=== PATIENT | female | born 1995 | race Two or more races ===

== ENCOUNTER 2019-01-19 02:48 | Emergency (ER) | payer OTHER ==
[~2019-01-19] VITALS: Ht 162.6 cm; Wt 64.4 kg
== END 2019-01-19 10:54 | disposition home or self-care (01) ==
LOC: ER 02:48
DX: K52.9 Noninfective gastroenteritis and colitis, unspecified (principal); J06.9 Acute upper respiratory infection, unspecified

== ENCOUNTER 2022-11-11 09:34 | Emergency (ER) | payer OTHER ==
[~2022-11-11] VITALS: Ht 160 cm; Wt 65.3 kg
== END 2022-11-11 14:23 | disposition home or self-care (01) ==
LOC: ER 09:34
DX: U07.1 COVID-19 (principal); Z88.6 Allergy status to analgesic agent

== ENCOUNTER 2023-06-21 08:20 | Outpatient (CLI) | payer OTHER | END 2023-06-21 08:27 | disposition home or self-care (01) | LOC: MRI 08:20 | DX: M54.59 Other low back pain (principal) | CPT/HCPCS: 72148 ==

== ENCOUNTER → 2023-06-22 06:38 | Outpatient (CLI) | payer OTHER ==
[2023-06-22 14:56] LABS: PLATELET ESTIMATE NORMAL (NORMAL)
== END | disposition home or self-care (01) ==
LOC: LAB 06:38
PROVIDERS: ATTEND Internal Medicine Hematology & Oncology
DX: D64.9 Anemia, unspecified (principal); D50.9 Iron deficiency anemia, unspecified

== ENCOUNTER 2023-09-06 05:00 | Emergency (ER) | payer OTHER ==
[~2023-09-06] VITALS: Ht 162.6 cm; Wt 65.8 kg
== END 2023-09-06 05:52 | disposition home or self-care (01) ==
LOC: ER 05:00
DX: S61.230A Puncture wound without foreign body of right index finger without damage to nail, initial encounter (principal); W46.1XXA Contact with contaminated hypodermic needle, initial encounter; Y93.89 Activity, other specified; Y92.239 Unspecified place in hospital as the place of occurrence of the external cause; Y99.8 Other external cause status; Z88.6 Allergy status to analgesic agent

== ENCOUNTER 2024-03-21 08:14 | Emergency (ER) | payer OTHER ==
[~2024-03-21] VITALS: Ht 162.6 cm; Wt 65.8 kg
[~2024-03-21 08:14] MED LIST: MAGNESIUM200 MG PO; NORFLEX100MG PO; OMEGA 3 1,0001 EACH PO
[2024-03-21] MEDS ORDERED: ACETAMINOPHEN 500 MG GEL..CAP PO ONE (08:49)
[2024-03-21 09:17] LABS: HEMATOCRIT 33.2 % (36.0-45.00); HEMOGLOBIN 11.5 g/dL (12.0-15.00); MEAN CELL VOLUME 91.8 fL (80.00-100.00); MEAN CORPUSCULAR HEMOGLOBIN 31.8 pg (27.00-32.0); MEAN CORPUSCULAR HGB CONC 34.6 g/dl (32.0-36.0); PLATELET COUNT 297 K/uL (150-450); RED BLOOD COUNT 3.61 M/uL (4.00-6.00); RED CELL DISTRIBUTION WIDTH 13.9 % (11.5-14.5)
== END 2024-03-21 11:21 | disposition home or self-care (01) ==
LOC: ER 08:15
PROVIDERS: Emergency Medicine
DX: N93.8 Other specified abnormal uterine and vaginal bleeding (principal); Z88.6 Allergy status to analgesic agent

== ENCOUNTER 2024-03-25 11:45 | Outpatient (CLI) | payer OTHER ==
[2024-03-25 12:34] LABS: HEMATOCRIT 34.5 % (36.0-45.00); HEMOGLOBIN 11.9 g/dL (12.0-15.00); MEAN CELL VOLUME 93.6 fL (80.00-100.00); MEAN CORPUSCULAR HEMOGLOBIN 32.4 pg (27.00-32.0); MEAN CORPUSCULAR HGB CONC 34.6 g/dl (32.0-36.0); PLATELET COUNT 264 K/uL (150-450); RED BLOOD COUNT 3.68 M/uL (4.00-6.00)
[2024-03-27 07:07] LABS: hav igm Negative (Negative); hcv Non Reactive (Non Reactive); hep b c Negative (Negative)
== END 2024-03-25 11:46 | disposition home or self-care (01) ==
LOC: LAB 11:45
PROVIDERS: ATTEND Obstetrics & Gynecology
DX: Z12.11 Encounter for screening for malignant neoplasm of colon (principal); D64.9 Anemia, unspecified; E03.8 Other specified hypothyroidism; N95.1 Menopausal and female climacteric states; I10 Essential (primary) hypertension; D51.9 Vitamin B12 deficiency anemia, unspecified; N30.00 Acute cystitis without hematuria; E83.51 Hypocalcemia; A64 Unspecified sexually transmitted disease; N39.0 Urinary tract infection, site not specified; R97.8 Other abnormal tumor markers; R79.89 Other specified abnormal findings of blood chemistry; E55.9 Vitamin D deficiency, unspecified; A60.9 Anogenital herpesviral infection, unspecified

== ENCOUNTER 2024-04-12 06:54 | Outpatient (CLI) | payer OTHER ==
[2024-04-12 08:46] LABS: HEMOGLOBIN 12.4 g/dL (12.0-15.00); MEAN CELL VOLUME 92.6 fL (80.00-100.00); MEAN CORPUSCULAR HEMOGLOBIN 31.8 pg (27.00-32.0); MEAN CORPUSCULAR HGB CONC 34.3 g/dl (32.0-36.0); PLATELET COUNT 236 K/uL (150-450); RED BLOOD COUNT 3.89 M/uL (4.00-6.00); RED CELL DISTRIBUTION WIDTH 14.4 % (11.5-14.5)
[2024-04-12 10:04] LABS: ALBUMIN 4.5 gm/dL (3.4-5.0); BILIRUBIN TOTAL 0.74 mg/dL (0.3-1.2); CALCIUM 9.8 mg/dL (8.5-10.1); CHOL HDL RATIO 2.7 (0-5.0); CREATININE SERUM 0.99 mg/dL (0.55-1.02); FERRITIN 26.6 NG/ML (8-252); GFR 67.28; GLOBULINA 4.4 G/DL (2.4-3.5); POTASSIUM 4.53 mEq/L (3.5-5.1); T4 TOTAL 7.69 UG/DL (4.8-13.9); TOTAL PROTEIN 8.9 gm/dL (6.4-8.2); TSH 2.14 uIU/mL (0.358-3.74)
[2024-04-12 15:54] LABS: URINE APPEARANCE Clear; URINE BILIRRUBIN Negative (NEGATIVE); URINE BLOOD Negative; URINE COLOR Yellow; URINE GLUCOSE Negative (NEGATIVE); URINE KETONE Trace (NEGATIVE); URINE LEUKOCYTE Negative; URINE NITRATE Negative; URINE PROTEIN Negative (NEGATIVE); URINE UROBILINOGEN 0.2 E.U./dl
[2024-04-12 15:58] LABS: URINE BACTERIA 479.9 uL (0.0-1933); URINE EPITHELIAL CELLS 21.1 uL (0.0-38.8); URINE RBC 6.8 uL (0.0-20.8); URINE WBC 14.5 uL (0.0-23.2)
[2024-04-12 16:01] LABS: URINE CAST 0.15 uL (0.0-1.40)
[2024-04-15 10:04] LABS: MEASLES IGG 57.5 AU/mL (Immune >16.4); PROLACTIN 40.3 ng/mL (4.8-33.4); RUBELLA IGM <20.0 AU/mL (0.0-19.9)
== END 2024-04-12 14:46 | disposition home or self-care (01) ==
LOC: LAB 06:54
PROVIDERS: ATTEND Internal Medicine Hematology & Oncology
DX: D50.8 Other iron deficiency anemias (principal); R74.01 Elevation of levels of liver transaminase levels; E03.8 Other specified hypothyroidism; E78.00 Pure hypercholesterolemia, unspecified; E55.9 Vitamin D deficiency, unspecified; B05.9 Measles without complication; B06.9 Rubella without complication; B26.9 Mumps without complication; A51.9 Early syphilis, unspecified; E03.9 Hypothyroidism, unspecified; E22.1 Hyperprolactinemia

== ENCOUNTER 2024-04-18 11:27 | Outpatient (CLI) | payer OTHER ==
[2024-04-18 12:54] LABS: MYCOPLASMA PNEUMONIAE IGM NON REACTIVE (NO REACTIVE)
== END 2024-04-18 11:38 | disposition home or self-care (01) ==
LOC: LAB 11:27
PROVIDERS: ATTEND Internal Medicine
DX: J20.9 Acute bronchitis, unspecified (principal)

== ENCOUNTER 2024-06-04 14:45 | Outpatient (CLI) | payer OTHER | END 2024-06-04 14:55 | disposition home or self-care (01) | LOC: PPH VACUNA 14:45 | PROVIDERS: ATTEND Emergency Medicine Pediatric Emergency Medicine | DX: Z23 Encounter for immunization (principal) ==

== ENCOUNTER 2024-06-11 08:11 | Outpatient (CLI) | payer OTHER | END 2024-06-11 08:20 | disposition home or self-care (01) | LOC: MRI 08:11 | PROVIDERS: ATTEND Internal Medicine Endocrinology, Diabetes & Metabolism | DX: D35.2 Benign neoplasm of pituitary gland (principal) | CPT/HCPCS: 70553 ==

== ENCOUNTER 2024-09-22 07:34 | Emergency (ER) | payer OTHER ==
[~2024-09-22] VITALS: Ht 157.5 cm; Wt 65.8 kg
[2024-09-22] MEDS ORDERED: CEFTRIAXONE SODIUM 1,000 MG VIAL ONE (08:56)
== END 2024-09-22 09:39 | disposition home or self-care (01) ==
LOC: ER 07:36
DX: H60.8X2 Other otitis externa, left ear (principal); Z88.6 Allergy status to analgesic agent

== ENCOUNTER 2025-06-04 08:17 | Outpatient (CLI) | payer OTHER | END 2025-06-04 08:20 | disposition home or self-care (01) | LOC: MRI 08:17 | PROVIDERS: ATTEND Internal Medicine | DX: R51.9 Headache, unspecified (principal); H92.02 Otalgia, left ear; Z80.9 Family history of malignant neoplasm, unspecified | CPT/HCPCS: 70551 ==

== ENCOUNTER 2025-06-11 09:58 | Outpatient (CLI) | payer OTHER ==
[2025-06-11 11:11] LABS: URINE APPEARANCE Clear; URINE BILIRRUBIN Negative (NEGATIVE); URINE BLOOD Trace; URINE COLOR Yellow; URINE GLUCOSE Negative (NEGATIVE); URINE KETONE Negative (NEGATIVE); URINE LEUKOCYTE Negative; URINE NITRATE Negative; URINE PROTEIN Negative (NEGATIVE); URINE UROBILINOGEN 0.2 E.U./dl
[2025-06-11 11:13] LABS: URINE BACTERIA 4.7 uL (0.0-1933); URINE EPITHELIAL CELLS 5.6 uL (0.0-38.8); URINE RBC 20.0 uL (0.0-20.8); URINE WBC 2.4 uL (0.0-23.2)
[2025-06-11 11:16] LABS: BASO % 0.5 % (0.1-1.2); EOS # 0.06 (0.04-0.54); EOS % 1.4 % (0.7-7.0); LYMPH # 1.61 (1.18-3.74); LYMPH % 36.8 % (19.3-53.1); MEAN PLATELET VOLUME 9.60 fl (9.4-12.4); MONO # 0.31 (0.24-0.82); MONO % 7.1 % (4.7-12.5); NEUT # 2.36 (1.56-6.13); NEUT % 54.0 % (34.0-71.1); RED CELL DISTRIBUTION WIDTH 13.3 % (11.6-14.4)
[2025-06-11 11:34] LABS: URINE CAST 0.14 uL (0.0-1.40)
[2025-06-11 12:16] LABS: BILIRUBIN TOTAL 0.8 mg/dL (0.3-1.2)
[2025-06-11 12:46] LABS: GLUCOSE FASTING 87.0 mg/dL (65-100)
[2025-06-11 13:34] LABS: ALT/SGPT 25.0 U/L (12-78); AST/SGOT 26.0 U/L (15-37); BUN CREA RATIO 20.0 (7.0-25.0); CHOL HDL RATIO 2.9 (0-5.0); CREATININE SERUM 0.9 mg/dL (0.55-1.02); GFR 74.55; GLOBULINA 3.8 G/DL (2.4-3.5); HDL 73.0 mg/dl (40-60); LDL 127.0 mg/dl (0-130); OSMOLALITY SERUM 281.0 MOSM/KG (275-295); VLDL 8.0 (0-39)
[2025-06-11 14:15] LABS: T3 TOTAL 0.667 ng/ml (0.846-2.02); VITAMIN D3 25 HYDROXY 42.73 ng/ml (30-120)
[2025-06-11 22:18] LABS: T4 TOTAL 5.81 UG/DL (4.8-13.9)
[2025-06-11 23:27] LABS: TSH 1.44 uIU/mL (0.358-3.74)
== END 2025-06-11 10:02 | disposition home or self-care (01) ==
LOC: LAB 09:58
PROVIDERS: ATTEND Internal Medicine
DX: C67.3 Malignant neoplasm of anterior wall of bladder (principal); A64 Unspecified sexually transmitted disease; Z00.00 Encounter for general adult medical examination without abnormal findings; Z13.1 Encounter for screening for diabetes mellitus; Z13.220 Encounter for screening for lipoid disorders; Z13.29 Encounter for screening for other suspected endocrine disorder; Z11.3 Encounter for screening for infections with a predominantly sexual mode of transmission

== ENCOUNTER 2025-07-14 05:28 | Emergency (ER) | payer OTHER ==
[~2025-07-14] VITALS: Ht 157.5 cm; Wt 65.8 kg
[2025-07-14] MEDS ORDERED: ONDANSETRON HCL 4 MG in 0.9 % SODIUM CHLORIDE 50 ML IV ONE (06:00)
[2025-07-14] MEDS ORDERED: FAMOTIDINE/PF 20 MG in 0.9 % SODIUM CHLORIDE 8 ML IV PUSH ONE (06:00)
[2025-07-14] MEDS ORDERED: 0.9 % SODIUM CHLORIDE 1,000 ML IV SCH (06:00)
[2025-07-14] MEDS ORDERED: HYOSCYAMINE SULFATE 0.125 MG TAB.SUBL SL ONE (06:00)
[2025-07-14] MEDS ORDERED: HYOSCYAMINE SULFATE 0.125 MG TAB.SUBL ONE (06:25)
[2025-07-14] MEDS ORDERED: ONDANSETRON HCL 2 MG/ML VIAL ONE (06:25)
[2025-07-14] MEDS ORDERED: FAMOTIDINE/PF 20 MG/2 ML VIAL ONE (06:26)
[2025-07-14 06:56] LABS: BASO % 0.1 % (0.1-1.2); EOS # 0.03 (0.04-0.54); EOS % 0.3 % (0.7-7.0); LYMPH # 0.83 (1.18-3.74); LYMPH % 7.2 % (19.3-53.1); MEAN PLATELET VOLUME 10.30 fl (9.4-12.4); MONO # 0.45 (0.24-0.82); MONO % 3.9 % (4.7-12.5); NEUT # 10.23 (1.56-6.13); NEUT % 88.2 % (34.0-71.1); RED CELL DISTRIBUTION WIDTH 13.2 % (11.6-14.4)
[2025-07-14 08:02] LABS: URINE APPEARANCE Clear; URINE BILIRRUBIN Negative (NEGATIVE); URINE BLOOD Small; URINE COLOR Yellow; URINE GLUCOSE Negative (NEGATIVE); URINE LEUKOCYTE Trace; URINE NITRATE Negative; URINE PROTEIN Negative (NEGATIVE); URINE UROBILINOGEN 0.2 E.U./dl
[2025-07-14 08:06] LABS: URINE BACTERIA 242.3 uL (0.0-1933); URINE EPITHELIAL CELLS 17.2 uL (0.0-38.8); URINE RBC 12.3 uL (0.0-20.8); URINE WBC 18.4 uL (0.0-23.2)
[2025-07-14 08:08] LABS: ALT/SGPT 19 U/L (12-78); AST/SGOT 22 U/L (15-37); BILIRUBIN TOTAL 1.00 mg/dL (0.3-1.2); BUN CREA RATIO 18 (7.0-25.0); CREATININE SERUM 0.97 mg/dL (0.55-1.02); GFR 68.38; GLOBULINA 4.0 G/DL (2.4-3.5); GLUCOSE FASTING 96 mg/dL (65-100); OSMOLALITY SERUM 281 MOSM/KG (275-295)
[2025-07-14 08:12] LABS: HCG QUANTITATIVE < 1 mUI/mL (1-3)
[2025-07-14 08:25] LABS: URINE CAST 0.00 uL (0.0-1.40); URINE KETONE 40 (NEGATIVE)
[2025-07-14] MEDS ORDERED: LEVSIN/SL0.125 MG SL (11:40)
[2025-07-14] MEDS ORDERED: AMOX1TAB5 PO (11:40)
[2025-07-14] MEDS ORDERED: PEPCID AC20 MG PO (11:40)
== END 2025-07-14 11:59 | disposition home or self-care (01) ==
LOC: ER 05:29
PROVIDERS: General Practice
DX: R10.11 Right upper quadrant pain (principal); K82.4 Cholesterolosis of gallbladder; Z88.6 Allergy status to analgesic agent